=== PATIENT | female | born 1950 | race Caucasian/White ===

== ENCOUNTER → 2017-12-30 | Outpatient (CLI) | payer MEDICARE | LOC: M RAD 06:34 | DX: I70.0 Atherosclerosis of aorta (principal); I70.213 Atherosclerosis of native arteries of extremities with intermittent claudication, bilateral legs | CPT/HCPCS: 93923 ==

== ENCOUNTER → 2018-11-12 | Outpatient (CLI) | payer MEDICARE ==
--- NOTE | 2018-11-12 10:17 | REP ---
Bilateral lower extremity arterial Doppler ultrasound: History: Follow-up graft. Intermittent claudication. Comparison study December 30, 2017. The patient is status post axilla O fem bypass graft on the right and fem-fem crossover graft. Findings: Ankle brachial indices are measured at 0.7 bilaterally. The right axilla femoral and the fem-fem crossover grafts are patent. Monophasic waveforms are seen throughout the graft and throughout both lower extremities. There is elevation of Doppler velocities at the right and left common femoral arteries at the graft junction suggesting mild stenosis. Findings are similar to the prior study. The right axillofemoral bypass graft shows a peak systolic flow velocity of 93.6 cm/s proximally, 173 Centimeters per second at the flank, 233 cm/sec just above the distal anastomosis, 231 cm/sec at the anastomosis. The right side of the fem-fem crossover graft demonstrates an 80 cm/sec flow, the midsegment demonstrates 84 cm/sec and the left side of the graft 76 cm/sec Velocity chart right lower extremity arteries: Right CF A 151 cm/S Profunda 53 Proximal SFA 71, 83 Mid SFA 67, Distal SFA 63, 53 Popliteal 45 Proximal AT A 20 Tibioperoneal trunk 28 Proximal PROOF CARRIER 30 Distal PROOF CARRIER 38 Distal AT A 21 Left lower extremity velocity chart: Left CF A 87 cm/S, 151 Profunda 51 Proximal SFA 75, 71 Mid SFA 67 Distal SFA 55, 64 Popliteal 35, Proximal AT A 24 Tibioperoneal trunk 34 Proximal PROOF CARRIER 35 Distal PROOF CARRIER 33 Distal AT A 13 Electronically Signed by Waylon Durán MD 11/12/2018 10:09 A
== END ==
LOC: M RAD 07:09
PROVIDERS: ATTEND Surgery Vascular Surgery
DX: I70.212 Atherosclerosis of native arteries of extremities with intermittent claudication, left leg (principal); I70.311 Atherosclerosis of unspecified type of bypass graft(s) of the extremities with intermittent claudication, right leg

== ENCOUNTER → 2020-01-10 | Outpatient (CLI) | payer MEDICARE ==
--- NOTE | 2020-01-10 09:38 | REP ---
Bilateral lower extremity arterial Doppler ultrasound: History: Follow up axillobifemoral graft. Comparison study November 12, 2018. Findings: Ankle brachial indices are reduced bilaterally measured at 0.4 on the right and 0.3 on the left. This is a change from the prior study. Also noted is new stenotic flow velocity in the proximal portion of the axillobifemoral graft with monophasic waveforms at and below this level. This suggests significant new stenosis in the proximal portion of the axillary bifemoral graft. Peak systolic flow velocity here is 435 cm/sec where as previously, it was 94 cm/sec. At the level of the right flank, peak systolic flow velocity in the graft is 219 cm/sec, previously 173. At the right anastomosis, peak systolic flow velocity is 288 cm/sec. The midportion of the fem-fem crossover graft shows peak systolic flow velocity of 79 cm/sec and at the left anastomosis, PSV is 114 cm/S. Monophasic arterial Doppler waveforms are again noted throughout both lower extremity arteries. Velocity chart right lower extremity: CF A 67 cm/S Profunda 75 Proximal SFA 117 Mid SFA 85 Distal SFA 89 Popliteal 52 Proximal AT A 42 Tibioperoneal trunk 41 Proximal PROVISIONING ANALYST 42 Distal PROVISIONING ANALYST 47 Distal AT A 37 Velocity chart left lower extremity: CF A 62 cm/S Profunda 64 Proximal SFA 73 Mid SFA 66 Distal SFA 60 Popliteal 41 Proximal AT A 21 Tibioperoneal trunk 46 Proximal PROVISIONING ANALYST 34 Distal PROVISIONING ANALYST nine Distal AT A 25 Electronically Signed by Waylon Durán MD 01/10/2020 09:29 A
== END ==
LOC: M RAD 07:22
PROVIDERS: ATTEND Surgery Vascular Surgery
DX: I70.213 Atherosclerosis of native arteries of extremities with intermittent claudication, bilateral legs (principal)

== ENCOUNTER → 2020-07-25 | Outpatient (CLI) | payer MEDICARE ==
[~2020-07-25] MED LIST: ISOVUE-370 76% 100ML VIAL As Ordered ONE
== END ==
LOC: M RAD 07:42
PROVIDERS: ATTEND Surgery Vascular Surgery
DX: I70.213 Atherosclerosis of native arteries of extremities with intermittent claudication, bilateral legs (principal); T82.898A Other specified complication of vascular prosthetic devices, implants and grafts, initial encounter

== ENCOUNTER → 2020-08-23 | Outpatient (CLI) | payer MEDICARE ==
--- NOTE | 2020-08-23 14:10 | REP ---
INDICATION: ATHSCL OF [place]IL[place] ARTERIES. COMPARISON: None. TECHNIQUE: CT angiogram chest performed following the intravenous administration of 100 cc of Isovue 370. Sagittal and coronal reconstruction images are performed. FINDINGS: Lungs: Clear, no infiltrate or nodule. Mediastinum: No adenopathy. Pulmonary arteries: No evidence of pulmonary embolism. Loan: No adenopathy. Axilla: No adenopathy. Pleura: No effusion. Heart: Not enlarged. Thoracic aorta: No aneurysm or dissection. There are mild atherosclerotic calcifications diffusely. There is a patent right axillary artery to bi femoral artery bypass graft. The axillary origin of the graft is not visualized due to artifact from injected IV contrast in the right arm. The graft is widely patent to its bifurcation with no stenosis. Upper abdominal structures: There is a small hiatal hernia. Visualized osseous structures: Multiple sternal wires are present. There are degenerative changes of the spine without compression deformity. IMPRESSION: There are mild atherosclerotic calcifications of the thoracic aorta diffusely. There is a patent right axillary artery to bi femoral artery bypass graft. The axillary origin of the graft is not visualized due to artifact from injected IV contrast in the right arm. The graft is widely patent to its bifurcation with no stenosis. <Electronically signed by Gera Frey > 08/23/20 [id number]
--- NOTE | 2020-08-23 14:28 | REP ---
INDICATION: ATHSCL OF SHISHMAREF IRA ARTERIES COMPARISON: None. TECHNIQUE: CT angiogram of the abdomen and pelvis was performed with intravenous administration of 100 cc of Isovue 370, without oral contrast. 3D MIP reconstruction images performed. FINDINGS: Abdominal aorta: No aneurysm or dissection. There is calcific plaque with mild stenosis at the origin of the celiac artery. There is focal calcific plaque and moderate stenosis at the origin of the superior mesenteric artery. There is [id number] diffuse plaquing of the abdominal aorta. 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 The origin of both renal arteries are patent with mild narrowing and plaquing. The right common iliac artery is severely narrowed with a tiny amount of patent flow. There is high-grade stenosis at the origin of the right internal iliac artery with mild diffuse narrowing distal to that. The right external iliac artery demonstrates mild diffuse narrowing. Right limb of the bypass graft demonstrates a widely patent anastomosis with the right common femoral artery. The right superficial femoral artery and profunda artery are patent. The left common iliac artery demonstrates severe narrowing with a tiny amount of intraluminal flow. There is also diffuse severe narrowing of the left internal iliac artery. The left external iliac artery is extremely small in caliber with no significant intraluminal flow. The distal aspect of the external iliac artery is increased in caliber and patent. The left limb of the bypass graft is widely patent with an anastomosis with the left common femoral artery. The left superficial femoral and profunda arteries are patent. Liver: Normal Gallbladder: There is a 2 cm gallstone in the gallbladder without gallbladder wall thickening or biliary dilatation. Spleen: A superior splenic cyst measures 4.3 cm in diameter. Adrenals: Normal. Pancreas: Normal. Kidneys: Normal. Small and large bowel: There is sigmoid and left colonic diverticulosis without acute diverticulitis.. Free fluid: None. Adenopathy: None. Appendix: Not inflamed. Pelvis: No mass. There is a large umbilical hernia present, with a defect in the anterior abdominal musculature at that level approximately 5.3 cm in width. The hernia sac contains noninflamed and nonobstructed bowel. Osseous structures: There are degenerative changes of the spine without compression deformity. 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 There is focal calcific plaque and moderate stenosis at the origin of the superior mesenteric artery. There is [id number] diffuse plaquing of the abdominal aorta. 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 The origin of both renal arteries are patent with mild narrowing and plaquing. The right common iliac artery is severely narrowed with a tiny amount of patent flow. There is high-grade stenosis at the origin of the right internal iliac artery with mild diffuse narrowing distal to that. The right external iliac artery demonstrates mild diffuse narrowing and patent flow.. Right limb of the bypass graft demonstrates a widely patent anastomosis with the right common femoral artery. The right superficial femoral artery and profunda artery are patent. The left common iliac artery demonstrates severe narrowing with a tiny amount of intraluminal flow. There is also diffuse severe narrowing of the left internal iliac artery. The left external iliac artery is extremely small in caliber with no significant intraluminal flow. The distal aspect of the external iliac artery is increased in caliber and patent. The left limb of the bypass graft is widely patent with an anastomosis with the left common femoral artery. The left superficial femoral and profunda arteries are patent. <Electronically signed by Gera Frey > 08/23/20 1524
== END | disposition home or self-care (01) ==
LOC: M RAD 08:49
PROVIDERS: ATTEND Surgery Vascular Surgery
DX: I70.0 Atherosclerosis of aorta (principal); I70.213 Atherosclerosis of native arteries of extremities with intermittent claudication, bilateral legs; T82.898A Other specified complication of vascular prosthetic devices, implants and grafts, initial encounter; X58.XXXA Exposure to other specified factors, initial encounter; Y92.89 Other specified places as the place of occurrence of the external cause
CPT/HCPCS: 71275; 74174; Q9967

== ENCOUNTER → 2020-11-03 | Outpatient (CLI) | payer MEDICARE ==
--- NOTE | 2020-11-03 09:08 | REP ---
INDICATION: COMPLICATION OF VASCULAR GRAFT, COMPARISON: None. TECHNIQUE: Axial contrast enhanced images from the thoracic inlet to the upper abdomen using CT angiographic technique with multiplanar re-formations. 75 ml Isovue 370 intravenous contrast material administered without complication. Post processing volume rendered CT angiogram from the level of the thoracic aortic arch into the right shoulder obtained. This CT examination was performed using the following dose reduction techniques: Automated exposure control, adjustment of mA and/or kv according to the patient's size, and use of iterative reconstruction technique. FINDINGS: Satisfactory arterial enhancement demonstrates relatively normal appearance to the thoracic aortic arch and branch vessels. There is evidence for a presumed axillary to right lower extremity bypass graft extending from the level of the thoracic inlet along the subcutaneous tissues of the right lateral chest wall and abdomen. The bypass graft appears completely patent and without evidence for thrombus/stenosis or occlusion to the inferior-most obtained images at the right flank level. Further evaluation of the mediastinum demonstrates moderate partially calcified atherosclerotic changes to the thoracic aorta without aneurysm or dissection. Atherosclerotic changes to the coronary arteries are also identified without evidence for cardiomegaly or pericardial effusion. There is no evidence for adenopathy. The tracheobronchial tree is patent. Incidental low-density nodules to the thyroid gland noted. The bilateral lung jones are essentially clear and without consolidation, effusion, or pneumothorax. However, evaluation for small nodules is limited due to motion artifact. Limited evaluation of the visualized upper abdomen demonstrates mild hepatosteatosis, cholelithiasis, 1.2 cm right adrenal adenoma and 4.3 cm simple appearing splenic cyst. IMPRESSION: 1. Visualized portions of the axillary to right lower extremity bypass graft appear patent and normal. No evidence for stenosis or occlusion. The remainder of the arterial vasculature including thoracic aorta and major branch vessels demonstrate normal patency. 2. No mediastinal or pleuroparenchymal process appreciated. 3. Upper abdominal findings as described above. <Electronically signed by Lenin Castillo > 11/03/20 [id number]
== END ==
LOC: M RAD 07:30
PROVIDERS: ATTEND Surgery Vascular Surgery
DX: I70.213 Atherosclerosis of native arteries of extremities with intermittent claudication, bilateral legs (principal); Z95.820 Peripheral vascular angioplasty status with implants and grafts
CPT/HCPCS: 71275; Q9967

== ENCOUNTER → 2021-07-03 | Outpatient (CLI) | payer MEDICARE ==
--- NOTE | 2021-07-03 10:30 | REP ---
INDICATION: ATHEROSCLEROSIS,OTH COMPLICATIONS VASC PROSTH. COMPARISON: None. TECHNIQUE: Right upper extremity arterial Doppler ultrasound. FINDINGS: The origin of the right axillofemoral bypass graft is observed. There is monophasic waveform and somewhat elevated systolic velocity in the right subclavian artery. Monophasic waveform is seen in the right distal radial artery. Waveforms are otherwise normal. Right upper extremity arterial Doppler velocity chart: Right CCA PSV 71 cm/S Right subclavian 336 Right axillary 143 Right brachial artery proximal 170 Right brachial artery mid 185 Right brachial artery distal 157 Right radial artery proximal 44 Right radial artery distal 35 Right ulnar artery proximal 80 Right ulnar artery distal 107 IMPRESSION: Right upper extremity arterial Doppler ultrasound and velocity chart as above. <Electronically signed by Mandeep Durán > 07/03/21 1029
--- NOTE | 2021-07-03 10:35 | REP ---
INDICATION: ATHEROSCLEROSIS,OTH COMPLICATIONS VASC PROSTH. COMPARISON: None. TECHNIQUE: Bilateral lower extremity arterial Doppler ultrasound. FINDINGS: The patient has a patent right axillo fem and right to left fem-fem bypass graft. Monophasic arterial Doppler waveforms are noted throughout the grafts and throughout both lower extremity arterial trees. The ankle brachial indices are decreased measured at 0.7 on the right and 0.6 on the left. No high-grade stenosis or occlusion is appreciated. Flow is observed to be somewhat slower on the left lower extremity than the right. Right axillo fem bypass graft velocity chart: Pre origin PSV 255 cm/S At origin PSV 281 Proximal graft 228 Mid flank level 171 Distal graft 165 Right LENS DOTTER anastomosis level 201 Fem-fem graft velocity chart: Right and asked him oasis PSV 131 cm/S Mid 55 Distal graft 65 Left LENS DOTTER post anastomosis 38 Right lower extremity arterial Doppler velocity chart: Right LENS DOTTER PSV 138 cm/S Profundal 63 Proximal SFA 74 Mid SFA 67 Distal SFA 55 Popliteal 41 Proximal KATHERYN 36 Tibial-peroneal trunk 37 Proximal ADMISSIONS MANAGER RN 33 Distal ADMISSIONS MANAGER RN. There Soham Distal KATHERYN 28 Left lower extremity arterial Doppler velocity chart: Left LENS DOTTER PSV 38 cm/S Profundal 62 Proximal SFA 46 Mid SFA 39 Distal SFA 29 Popliteal 30 Proximal KATHERYN 26 Tibial-peroneal trunk 22 Proximal ADMISSIONS MANAGER RN 15 Distal ADMISSIONS MANAGER RN 26 Distal KATHERYN 18 IMPRESSION: Patent axillo fem and right to left fem-fem crossover grafts as above. Monophasic waveforms, somewhat decreased velocities bilaterally. Reduced ankle brachial indices. No focal high-grade stenosis or occlusion. <Electronically signed by Mandeep Durán > 07/03/21 1038
== END ==
LOC: M RAD 07:59
PROVIDERS: ATTEND Surgery Vascular Surgery
DX: I70.213 Atherosclerosis of native arteries of extremities with intermittent claudication, bilateral legs (principal); T82.898D Other specified complication of vascular prosthetic devices, implants and grafts, subsequent encounter